=== PATIENT | female | born 1960 | race Caucasian/White ===

== ENCOUNTER 2023-01-12 07:18 | Inpatient (IN) | payer OTHER ==
--- OUTSIDE RECORDS SUMMARY | 2023-01-12 07:21 | XMS REPORT | Continuity of Care Document ---
:1960 Author Organization [facility] t Address [address] [place] [address] [place] [id number] Care Team Providers Name Role Phone Unavailable Unavailable Unavailable Payers Payer Name Policy Type Policy Number Effective Date Expiration Date S ource Problems This patient has no known problems. Allergies, Adverse Reactions, Alerts Allergy Allergy Status Severity Reaction(s) Onset Inactive Treating Comm ents Source Name Type Date Date Clinician Penicill DA Active SV 2018-0 [facility] ins 06-17 [place] [facility] Penicill DA Active SV 2018-0 [facility] 06-09 [place] [facility] Medications This patient has no known medications. Procedures This patient has no known procedures. Results This patient has no known results.
[2023-01-12] MEDS ORDERED: NA CHLORIDE 0.9% 1,000 ML ONE (07:45)
[2023-01-12 07:52] LABS: Absolute Lymphocytes (CBC) 2.4 K/uL (0.7-4.9); Lymphocytes % 28.3 % (15.3-44.8); MCV 85.5 fL (80-100); RBC Red Blood Cell Count 5.14 M/uL (3.86-4.86)
--- NOTE | 2023-01-12 08:00 | RAD REPORT ---
EXAM DESCRIPTION: CT - Ct Stroke Brain Wo Cont - 01/12/2023 7:52 am CLINICAL HISTORY: Right-sided weakness COMPARISON: none TECHNIQUE: Computed axial tomography of the head was obtained. All CT scans are performed using dose optimization technique as appropriate and may include automated exposure control or mA/KV adjustment according to patient size. FINDINGS: An intracranial bleed is not seen . The ventricles are normal in caliber. No extra-axial fluid collection is noted. Vague small low-density left basal ganglia Fluid within the sinuses/ mastoids is not seen. IMPRESSION: Vague low-density left basal ganglia. It is uncertain whether this represents pathology such as an acute infarct or volume averaging. If clinically indicated further evaluation with brain M RI could be obtained Dr Hale of the emergency room was notified at 7:54 a.m. January 14, 2023
[2023-01-12 08:04] LABS: Protime INR 0.88
[2023-01-12 08:12] LABS: Magnesium 2.6 mg/dL (1.6-2.4); Potassium 3.7 mmol/L (3.5-5.1); Troponin High Sensitivity 9.6 pg/mL (<58.9)
[2023-01-12 08:18] LABS: Urine Blood Negative (Negative); Urine Glucose Negative (Negative); Urine Protein Negative (Negative); Urine Specific Gravity 1.015 (1.005-1.030); Urine pH 7.5 (5.0-7.0)
--- NOTE | 2023-01-12 08:21 | RAD REPORT ---
EXAM DESCRIPTION: Emely Angio01/12/2023 7:54 am CLINICAL HISTORY: Slurred speech COMPARISON: None TECHNIQUE: 50 cc Isovue 370 was administered intravenously. 3D MIP reconstruction performed All CT scans are performed using dose optimization technique as appropriate and may include automated exposure control or mA/KV adjustment according to patient size. FINDINGS: The great vessels are unremarkable Common carotid, internal carotid and external carotid arteries do not demonstrate a significant steno sis. The left vertebral artery is dominant. The right vertebral artery is hypoplastic. No dissection seen IMPRESSION: No significant abnormality is displayed NASCET criteria used. Mild 0-49% stenosis Moderate 50-69% stenosis Severe 70-99% stenosis
[2023-01-12] MEDS ORDERED: ASPIRIN 81 MG CHEWABLE TABLET ONE (08:22)
[2023-01-12] MEDS ORDERED: FOLIC ACID 5 MG/ML VIAL ONE (08:23)
--- NOTE | 2023-01-12 08:24 | RAD REPORT ---
EXAM DESCRIPTION: CTHead angio01/12/2023 7:54 am CLINICAL HISTORY: Right-sided weakness/slurred speech COMPARISON: None TECHNIQUE: CT angiogram of the head was obtained. 3D MIPS reconstruction performed. All CT scans are performed using dose optimization technique as appropriate and may include automated exposure control or mA/KV adjustment according to patient size. FINDINGS: The basilar, internal carotid, anterior cerebral, middle cerebral and posterior cerebral a rteries do not demonstrate a significant abnormality An aneurysm is not seen A significant stenosis is not noted. IMPRESSION: No acute abnormality is displayed
--- NOTE | 2023-01-12 08:50 | RAD REPORT ---
EXAM DESCRIPTION: Ratna Single View01/12/2023 8:27 am CLINICAL HISTORY: Right-sided weakness/facial droop COMPARISON: 2021 FINDINGS: The lungs appear clear of acute infiltrate. The heart is normal size IMPRESSION: No acute abnormalities displayed
[2023-01-12] MEDS ORDERED: CLOPIDOGREL 75 MG TABLET ONE (10:32)
[2023-01-12] MEDS ORDERED: HYDROCODONE/APAP 5/325 MG TAB PO PRN (10:54)
[2023-01-12] MEDS ORDERED: ACETAMINOPHEN 325 MG TABLET PO PRN (10:54)
[2023-01-12] MEDS ORDERED: SODIUM CHLORIDE 0.9% 10ML INJ IV PRN (11:01)
[2023-01-12] MEDS ORDERED: ONDANSETRON 4 MG/2 ML VIAL IV PRN (11:07)
--- NOTE | 2023-01-12 11:20 | P.HP ---
Certification for Inpatient Patient admitted to: Inpatient With expected LOS: >2 Midnights Patient will require the following post-hospital care: None Practitioner: I am a practitioner with admitting privileges, knowledge of patient current condition, hospital course, and medical plan of care. Services: Services provided to patient in accordance with Admission requirements found in Title 42 Section 412.3 of the Code of Federal Regulations Patient History Date of Service: 01/12/23 Reason for admission: Right-sided weakness and slurred speech History of Present Illness: Patient is a 62-year-old female with a past medical history significant for GERD, hypertension, hyperlipidemia, nicotine dependence who presents with complaint of right-sided weakness and slurred speech. Patient reported that yesterday she felt weakness in her right side worse on the right upper extremity. Patient reported that weakness was intermittent but became worse and constant this morning. Patient also reported slurred speech onset this morning. Patient feels like her tongue is "heavy". Patient also has chronic cough. Patient reported associated signs and symptoms of difficulty walking\\poor gait. Patient also reported pain in the right upper arm. Patient denies any other signs and symptoms. Symptoms are aggravated or relieved by nothing. Patient decided to present to the hospital for medical evaluation. Allergies Penicillins Allergy (Unknown, Verified 01/29/14 19:26) Anaphylaxis codeine Adverse Reaction (Severe, Verified 01/29/14 19:27) Itching Home Medications: Albuterol Inhaler [Ventolin Inhaler*] 2 puff IH Q6HP PRN #1 hfa.aer.ad 01/30/14 Budesonide/Formoterol Fumarate [Symbicort 160-4.5 Mcg Inhaler] 2 puff IH BID #1 hfa.aer.ad 01/30/14 Estradiol [Estrace] 1 tab PO DAILY 01/30/14 Losartan/Hydrochlorothiazide [Hyzaar 50-12.5 Tablet] 1 tab PO 01/30/14 Pantoprazole [Protonix Tab*] 1 tab PO DAILY 01/30/14 Pitavastatin Calcium [Livalo] 1 tab PO BEDTIME 01/30/14 levoFLOXacin [Levaquin*] 500 mg PO DAILY #7 tab 01/30/14 predniSONE [Deltasone] 20 mg PO BID #9 tab 01/30/14 - Past Medical/Surgical History Diabetic: No -: Hypertension -: Acid Reflux -: Hyperlipidemia -: Chloesectomy -: Hysterectomy -: Tonsillectomy - Social History Smoking Status: Current every day smoker Counseled patient to stop smoking for: less than 10 minutes Smoking therapy provided: Yes Patient receptive to therapy: Yes Alcohol use: Yes CD- Drugs: No Caffeine use: Yes Place of Residence: Home Review of Systems General: Weakness ENT: Unremarkable Respiratory: Unremarkable Cardiovascular: Unremarkable Gastrointestinal: Unremarkable Genitourinary: Unremarkable Musculoskeletal: Arm Pain Integumentary: Unremarkable Neurological: Change in Speech, Other (Poor gait ) Lymphatics: Unremarkable Physical Examination - Physical Exam General: Alert, In no apparent distress, Oriented x3, Cooperative HEENT: Atraumatic, PERRLA, Mucous membr. moist/pink, EOMI, Sclerae nonicteric Neck: Supple, 2+ carotid pulse no bruit, No LAD, Without JVD or thyroid abnormality Respiratory: Clear to auscultation bilaterally, Normal air movement Cardiovascular: No edema, Regular rate/rhythm, Normal S1 S2 Capillary refill: <2 Seconds Gastrointestinal: Normal bowel sounds, No tenderness Musculoskeletal: No clubbing, No swelling, No tenderness Integumentary: No rashes Neurological: Normal tone, Normal affect, Abnormal gait, Abnormal speech, Abnormal strength Lymphatics: No axilla or inguinal lymphadenopathy - Studies Laboratory Data (last 24 hrs) 01/12/23 07:42: PT 9.7, INR 0.88, APTT 27.8 01/12/23 07:42: WBC 8.60, Hgb 14.5, Hct 44.0, Plt Count 323 01/12/23 07:42: Sodium 143, Potassium 3.7, BUN 10, Creatinine 0.92, Glucose 112 H, Magnesium 2.6 H Assessment and Plan - Plan --Suspected CVA. CTA neck\\head unremarkable for any acute findings. CT brain indicates vague low-density left basal ganglia. MRI brain pending. Patient placed on aspirin, folic acid and statin. Continue supportive care. --Abnormality of gait and mobility. MRI brain pending to rule out CVA. PT eval and treat. --Hypertension. We will allow permissive hypertension for SBP less than 200 mmHg. We will continue to monitor blood pressure levels. --GERD. Continue Protonix. --Nicotine dependence. Patient counseled on tobacco cessation. Placed on nicotine patch. --Hyperlipidemia. Continue statin. -- CKD 2. Stable. We will continue to monitor renal function. --DVT prophylaxis with Lovenox subQ. Discharge Plan: Home Plan to discharge in: Greater than 2 days - Advance Directives Does patient have a Living Will: No Does patient have a Durable POA for Healthcare: No - Code Status/Comfort Care Code Status Assessed: Yes Physician Review: Patient Assessed, Agree with Above Assessment and Plan Critical Care: No
[2023-01-12] MEDS ORDERED: LORazepam 2 MG/ML VIAL IV ONE (11:31)
[2023-01-12] MEDS ORDERED: LORazepam 2 MG/ML VIAL ONE (11:52)
[2023-01-12] MEDS ORDERED: TETRACAINE HCL 0.5% 4ML OPTH ONE (12:47)
--- NOTE | 2023-01-12 13:00 | RAD REPORT ---
EXAM DESCRIPTION: MRI - Brain Wo Cont - 01/12/2023 12:40 pm CLINICAL HISTORY: R/ O CVA Right-sided weakness COMPARISON: Noncontrast head CT and CT angiogram of the same day TECHNIQUE: Multiplanar multisequence MRI of the brain performed without IV contrast. FINDINGS: Motion artifact somewhat limits evaluation on some sequences, despite attempts at repeat i maging. Left colonic/posterior limb of internal capsule acute or early subacute infarct on the diffusion weig hted images. Minimal corresponding signal abnormality on T2 and FLAIR images. No evidence of acute intracranial hemorrhage or abnormal extra-axial fluid collections. Ventricular caliber within normal for age. Midline structures are unremarkable. Minimal subcortical and deep white matter T2/FLAIR hyperintensities, nonspecific, but suggestive of c hronic small vessel ischemic changes. No mass effect or midline shift. Major vascular flow voids are preserved. Mastoid air cells and paranasal sinuses are clear. IMPRESSION: Small left thalamus/ posterior limb of internal capsule acute or early subacute infarct. No significant mass effect. No findings to suggest an acute intracranial hemorrhage. The findings were communicated to Volodymyr Murray on 01/12/2023 at 12:55 hours.
[2023-01-12] MEDS: FOLIC ACID 1 MG TABLET PO SCH (13:18)
[2023-01-12] MEDS ORDERED: INFLUENZA VACCINE (for 6+ mo) 0.5 ML DOSE IMVAC ONE (14:00)
[2023-01-12 15:47] LABS: Magnesium 2.5 mg/dL (1.6-2.4); Phosphorus 2.7 mg/dL (2.5-4.9)
[2023-01-12 15:55] LABS: Thyroid Stimulating Hormone 6.31 uIU/mL (0.358-3.740)
[2023-01-12] MEDS ORDERED: ATORVASTATIN 40 MG TAB PO SCH (21:00)
[2023-01-12] MEDS ORDERED: PITAVASTATIN CALCIUM 2 MG PO SCH (21:00)
[2023-01-12] MEDS ORDERED: POTASSIUM CL SA 10 MEQ TAB PO ONE (21:00)
[2023-01-12] MEDS ORDERED: ATORVASTATIN 10 MG TAB PO SCH (21:00)
--- NOTE | 2023-01-12 21:03 | P.PN ---
Date of Service: 01/13/23 Subjective: Feels right arm is weaker but leg is stronger twitching in R extremities Able to converse, however feels physically harder than normal to "get words out" no new symptoms ROS: 10 point ROS as noted above, otherwise negative Physical Exam: Gen: Alert, NAD, AOx3 HEENT: normal conjunctiva, sclera anicteric CV: regular rate & rhythm, no edema Pulm: non-labored respirations on room air, clear bilaterally Abd: soft, non-tender, non-distended Neuro: normal speech, normal affect, Other (RUE 4-/5 strength, RLE 4+/5 strength) RUE/RLE with ataxia, worse in RUE - 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 vitals reviewed Problem List: acute vs subacute left thalamic /PLIC infarct Hypertension GERD Nicotine Dependence Hyperlipidemia CKD 2 CTA neck/head negative for any acute findings CT brain shows vague low-density left basal ganglia MRI brain indicates small left thalamus/ posterior limb of internal capsule acute or early subacute infarct PT - recommends inpatient rehab Speech therapy evaluation aspirin, plavix, statin, folic acid Monitor BP, allow permissive hypertension Continue Protonix Patient on nicotine patch Continue to monitor renal functions echo pending VTE: lovenox Code: Full Dispo: inpatient rehab f
[2023-01-13 04:16] LABS: Absolute Lymphocytes (CBC) 2.8 K/uL (0.7-4.9); Hematocrit 41.9 % (36.0-45.0); Lymphocytes % 27.5 % (15.3-44.8); MPV 7.1 fL (7.6-11.3); RBC Red Blood Cell Count 4.93 M/uL (3.86-4.86)
[2023-01-13 04:33] LABS: Potassium 3.9 mmol/L (3.5-5.1)
[2023-01-13] MEDS: HYDRALAZINE HCL 20 MG/ML VIAL IV PRN ×3 (06:53→20:47)
[2023-01-13] MEDS ORDERED: POTASSIUM CL SA 10 MEQ TAB PO ONE (09:00)
[2023-01-13] MEDS: ASPIRIN 81 MG CHEWABLE TABLET PO SCH (09:43)
[2023-01-13] MEDS: FOLIC ACID 1 MG TABLET PO SCH (09:43)
[2023-01-13] MEDS: PANTOPRAZOLE 40 MG INJ IVP SCH (09:44)
[2023-01-13] MEDS: NICOTINE 21 MG/PAT TD SCH (09:44)
[2023-01-13] MEDS: ENOXAPARIN 40 MG/0.4 ML SQ SCH (09:44)
[2023-01-13 12:16] VITALS: BMI 20.2
--- NOTE | 2023-01-13 12:42 | EKG ---
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
--- NOTE | 2023-01-13 13:47 | ECHO ---
HEIGHT: 5 ft 3 in WEIGHT: 114 lb 0 oz DATE OF STUDY: 01/13/[address]: Jaden Murray MD 2-DIMENSIONAL: YES M.MODE: YES DOPPLER: YES COLOR FLOW: YES TDS: NO PORTABLE: YES DEFINITY: NO BUBBLE STUDY: YES DIAGNOSIS: CEREBRAL VASCULAR ACCIDENT/ SEPTAL DEFECT/ THROMBUS CARDIAC HISTORY: CATHERIZATION: NO SURGERY: NO PROSTHETIC VALVE: NO PACEMAKER: NO MEASUREMENTS (cm) DIASTOLIC (NORMALS) SYSTOLIC (NORMALS) IVSd 0.8 (0.6-1.2) LA Diam 2.8 (1.9-4.0) LVEF 58% LVIDd 4.4 (3.5-5.7) LVIDs 3.1 (2.0-3.5) %FS 30% LVPWd 1.0 (0.6-1.2) Ao Diam 2.8 (2.0-3.7) 2 DIMENSIONAL ASSESSMENT: RIGHT ATRIUM: NORMAL LEFT ATRIUM: NORMAL RIGHT VENTRICLE: NORMAL LEFT VENTRICLE: NORMAL TRICUSPID VALVE: NORMAL MITRAL VALVE: MILD MITRAL REGURGITATION PULMONIC VALVE: NORMAL AORTIC VALVE: NORMAL PERICARDIAL EFFUSION: NONE AORTIC ROOT: NORMAL LEFT VENTRICULAR WALL MOTION: NORMAL. DOPPLER/COLOR FLOW: MILD MITRAL REGURGITATION. COMMENTS: 1. NORMAL LEFT VENTRICULAR EJECTION FRACTION 55-60% 2. NORMAL WALL MOTION 3. GRADE I DIASTOLIC DYSFUNCTION 4. BUBBLE STUDY WAS DONE (POOR WINDOWS). UNABLE TO EVALUATE FOR INTRA CARDIAC SHUNT, TRANSASOPHAGEAL ECHOCARDIOGRAM CAN BE DONE IF INDICATED TECHNOLOGIST: VALENTINO MANN
[2023-01-13] MEDS: CLOPIDOGREL 75 MG TABLET PO SCH (15:40)
[2023-01-13 15:41] LABS: Specific Gravity 1.005 (1.005-1.030); Urine Bilirubin NEGATIVE (Negative); Urine Blood Negative (Negative); Urine Clarity Clear (Clear); Urine Color Colorless (Yellow); Urine Glucose NEGATIVE (Negative); Urine Protein NEGATIVE (Negative); Urine Urobilinogen Normal (Normal)
[2023-01-13] MEDS ORDERED: CETIRIZINE HCL 5 MG TABLET PO PRN (20:18)
[2023-01-13] MEDS: ATORVASTATIN 40 MG TAB PO SCH (20:42)
[2023-01-14] MEDS ORDERED: MELATONIN 5 MG TABLET PO PRN (00:37)
[2023-01-14 05:11] LABS: Potassium 4.1 mmol/L (3.5-5.1)
--- NOTE | 2023-01-14 06:55 | P.PN ---
Date of Service: 01/14/23 Subjective: 2 episodes of BP > 200 systolic yesterday around 3pm and 10-11pm. Received IV hydralazine with good effect. Headache associated with evening elevated BP This morning BP down Feels both R extremities are weaker than yesterday; worse in r arm, difficulty making a fist as well as yesterday denies any new/different neuro deficits ROS: 10 point ROS as noted above, otherwise negative Physical Exam: Gen: Alert, NAD, AOx3 HEENT: normal conjunctiva, sclera anicteric CV: regular rate & rhythm, no edema Pulm: non-labored respirations on room air, clear bilaterally Abd: soft, non-tender, non-distended Neuro: normal speech, normal affect, Other (R lower facial droop, RUE 4/5 strength at wrist/hand, RLE 4/5 strength) RUE/RLE with ataxia, 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 in 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 - 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, 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 Problem List: acute vs subacute left thalamic /PLIC infarct Hypertension GERD Nicotine Dependence Hyperlipidemia CKD 2 Neuro unavailable CTA neck/head negative for any acute findings initial CT brain shows vague low-density left basal ganglia MRI brain indicates small left thalamus/ posterior limb of internal capsule acute or early subacute infarct PT - recommends inpatient rehab scheduled 01/15 Speech therapy evaluation aspirin, plavix, statin, folic acid Monitor BP, allow permissive hypertension low dose hydralazine for BP > 185/105 Continue Protonix Patient on nicotine patch echo shows a grade 1 diastolic dysfunction, otherwise normal repeat CT on 01/14 due to worsening of symptoms, no change in infarct, no hemorrhagic conversion VTE: lovenox Code: Full Dispo: inpatient rehab, likely tomorrow monitor BP today goal 140-170 systolic over the next few days
[2023-01-14] MEDS: ENOXAPARIN 40 MG/0.4 ML SQ SCH (08:03)
[2023-01-14] MEDS: NICOTINE 21 MG/PAT TD SCH (08:04)
[2023-01-14] MEDS: ASPIRIN 81 MG CHEWABLE TABLET PO SCH (08:04)
[2023-01-14] MEDS: FOLIC ACID 1 MG TABLET PO SCH (08:04)
[2023-01-14] MEDS: PANTOPRAZOLE 40 MG INJ IVP SCH (08:04)
[2023-01-14] MEDS: CLOPIDOGREL 75 MG TABLET PO SCH (08:04)
--- NOTE | 2023-01-14 11:48 | RAD REPORT ---
EXAM DESCRIPTION: CT - Head Brain Wo Cont - 01/14/2023 11:22 am CLINICAL HISTORY: stroke, worsening of current symptoms COMPARISON: Head angio dated 01/12/2023; Ct Stroke Brain Wo Cont dated 01/12/2023; Brain Wo Cont dated 01/12/2023 TECHNIQUE: Noncontrast head CT images ad were obtained without IV contrast. Multiplanar reformats we re generated and reviewed. All CT scans are performed using dose optimization technique as appropriate and may include automated exposure control or mA/KV adjustment according to patient size. FINDINGS: No intracranial hemorrhage, mass, or edema. Midline structures are unremarkable. Normal ventricular caliber for age. Focus of hypoattenuation in the left basal ganglia region, corresponds to known small infarct demonst rated on recent brain MRI. Pugh-white matter differentiation is otherwise preserved, without evidence of acute infarct. No abnormal extra-axial fluid collections. Mastoid air cells and visualized portions of the paranasal sinuses are clear. No acute bony findings. IMPRESSION: Known left basal ganglia small subacute infarct. No other acute intracranial process.
[2023-01-14] MEDS: ATORVASTATIN 40 MG TAB PO SCH (20:28)
[2023-01-14 21:33] VITALS: O2SAT 95
[2023-01-15 06:24] LABS: Magnesium 2.6 mg/dL (1.6-2.4); Potassium 3.8 mmol/L (3.5-5.1)
[2023-01-15 08:46] VITALS: BP 139/62; TEMP 97.7
[2023-01-15] MEDS ORDERED: POTASSIUM CL SA 10 MEQ TAB PO ONE (09:00)
[2023-01-15] MEDS: NICOTINE 21 MG/PAT TD SCH (09:07)
[2023-01-15] MEDS: PANTOPRAZOLE 40 MG INJ IVP SCH (09:08)
[2023-01-15] MEDS: FOLIC ACID 1 MG TABLET PO SCH (09:08)
[2023-01-15] MEDS: ENOXAPARIN 40 MG/0.4 ML SQ SCH (09:08)
[2023-01-15] MEDS: CLOPIDOGREL 75 MG TABLET PO SCH (09:08)
[2023-01-15] MEDS: ASPIRIN 81 MG CHEWABLE TABLET PO SCH (09:08)
--- NOTE | 2023-01-15 11:28 | P.DS ---
Admission Date: 01/12/23 Discharge Date: 01/15/23 Disposition: TRANSFER TO INPATIENT REHAB Discharge Condition: FAIR Reason for Admission: Right-sided weakness and slurred speech Brief History of Present Illness: Patient is a 62-year-old female with a past medical history significant for GERD, hypertension, hyperlipidemia, nicotine dependence who presents with complaint of right-sided weakness and slurred speech. Patient reported that yesterday she felt weakness in her right side worse on the right upper extremity. Patient reported that weakness was intermittent but became worse and constant this morning. Patient also reported slurred speech onset this morning. Patient feels like her tongue is "heavy". Patient also has chronic cough. Patient reported associated signs and symptoms of difficulty walking\\poor gait. Patient also reported pain in the right upper arm. Patient denies any other signs and symptoms. Symptoms are aggravated or relieved by nothing. Patient decided to present to the hospital for medical evaluation. Hospital Course: Problem List: acute vs subacute left thalamic /PLIC infarct Hypertension GERD Nicotine Dependence Hyperlipidemia CKD 2 Patient presented with new onset right-sided weakness. She was found to have a small acute vs subacute left thalamic/PLIC infarct. CTA head/neck, echocardiogram negative for any acute findings/etiology for her CVA. Echocardiogram was performed with bubble study, poor windows, no obvious septal defect. Discussed with neurology, given the location of the CVA, very unlikely to be embolic in nature and does not require further investigation by RUSSELL at this time. Patient had labile blood pressure reading early in hospitalization (>24-48hrs after CVA), with a few >190 systolic and associated with headache, managed with low dose IV hydralazine. On the morning of 01/14, she reported feeling her RUE was weaker / less strength in making a fist. Her systolic blood pressure did not drop below 130s with exception of one reading ~4am on 01/14. A repeat CT brain was performed and negative for hemorrhagic conversion or any new findings. She was evaluated with physical therapy and noted to have some improvement in her function and strength, was recommended for inpatient rehab. Her blood pressure improved systolics ranging [id number] without need for medication. Deemed stable for discharge to inpatient rehab. She is to continue on aspirin, Plavix, atorvastatin, folic acid Counselled on smoking cessation and received nicotine patch during hospitalization. 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 Laboratory Data at Discharge: WBC 10.00 K/uL (4.3-10.9) 01/13/23 03:54 Hgb 13.9 g/dL (12.0-15.0) 01/13/23 03:54 Hct 41.9 % (36.0-45.0) 01/13/23 03:54 Plt Count 310 K/uL (152-406) 01/13/23 03:54 PT 9.7 SECONDS (9.5-12.5) 01/12/23 07:42 INR 0.88 01/12/23 07:42 APTT 27.8 SECONDS (24.3-36.9) 01/12/23 07:42 Sodium 137 mmol/L (136-145) 01/15/23 05:58 Potassium 3.8 mmol/L (3.5-5.1) 01/15/23 05:58 BUN 13 mg/dL (7-18) 01/15/23 05:58 Creatinine 0.86 mg/dL (0.55-1.02) 01/15/23 05:58 Glucose 107 mg/dL (74-106) H 01/15/23 05:58 Phosphorus 2.7 mg/dL (2.5-4.9) 01/12/23 15:14 Magnesium 2.6 mg/dL (1.6-2.4) H 01/15/23 05:58 Triglycerides 154 mg/dL (<150) H 01/13/23 03:54 Cholesterol 145 mg/dL (<200) 01/13/23 03:54 HDL Cholesterol 34 mg/dL (40-60) L 01/13/23 03:54 Cholesterol/HDL Ratio 4.26 01/13/23 03:54 Home Medications: Estradiol [Estrace] 1 tab PO DAILY 01/30/14 Losartan/Hydrochlorothiazide [Hyzaar 50-12.5 Tablet] 1 tab PO 01/30/14 Pantoprazole [Protonix Tab*] 1 tab PO DAILY 01/30/14 Pitavastatin Calcium [Livalo] 1 tab PO BEDTIME 01/30/14 levoFLOXacin [Levaquin*] 500 mg PO DAILY #7 tab 01/30/14 predniSONE [Deltasone] 20 mg PO BID #9 tab 01/30/14 Aspirin Chewable [Aspirin Chewable*] 81 mg PO DAILY tab.chew 01/15/23 Atorvastatin Calcium [Lipitor] 40 mg PO BEDTIME tab 01/15/23 Clopidogrel Bisulfate [Plavix*] 75 mg PO DAILY 01/15/23 Physician Discharge Instructions: Patient presented with new onset right-sided weakness. She was found to have a small acute vs subacute left thalamic/PLIC infarct. CTA head/neck, echocardiogram negative for any acute findings/etiology for her CVA. Echocardiogram was performed with bubble study, poor windows, no obvious septal defect. Discussed with neurology, given the location of the CVA, very unlikely to be embolic in nature and does not require further investigation by RUSSELL at this time. Patient had labile blood pressure reading early in hospitalization (>24-48hrs after CVA), with a few >190 systolic and associated with headache, managed with low dose IV hydralazine. On the morning of 01/14, she reported feeling her RUE was weaker / less strength in making a fist. Her systolic blood pressure did not drop below 130s with exception of one reading ~4am on 01/14. A repeat CT brain was performed and negative for hemorrhagic conversion or any new findings. She was evaluated with physical therapy and noted to have some improvement in her function and strength, was recommended for inpatient rehab. Her blood pressure improved systolics ranging [phone] without need for medication. Deemed stable for discharge to inpatient rehab. She is to continue on aspirin, Plavix, atorvastatin, folic acid Counselled on smoking cessation and received nicotine patch during hospitalization. Diet: Regular Activity: Fall precautions Followup: Vitor Herrera MD [Primary Care Provider] - Time spent managing pt's care (in minutes): 45
== END 2023-01-15 09:31 | DRG 65 ==
LOC: ER 07:18 → ERHOLD 10:52 → 2ND 12:45
PROVIDERS: ADMIT Internal Medicine; ATTEND Hospitalist
DX: I63.9 Cerebral infarction, unspecified (principal); G81.91 Hemiplegia, unspecified affecting right dominant side; I12.9 Hypertensive chronic kidney disease with stage 1 through stage 4 chronic kidney disease, or unspecified chronic kidney disease; N18.2 Chronic kidney disease, stage 2 (mild); K21.9 Gastro-esophageal reflux disease without esophagitis; E78.5 Hyperlipidemia, unspecified; F17.200 Nicotine dependence, unspecified, uncomplicated; R47.81 Slurred speech; Z71.6 Tobacco abuse counseling; Z88.1 Allergy status to other antibiotic agents; Z88.5 Allergy status to narcotic agent; Z90.49 Acquired absence of other specified parts of digestive tract; Z79.52 Long term (current) use of systemic steroids; Z79.899 Other long term (current) drug therapy; Z90.710 Acquired absence of both cervix and uterus; Z20.822 Contact with and (suspected) exposure to COVID-19
CPT/HCPCS: 36415; 70450; 70496; 70498; 70551; 71045; 80048; 80061; 81003; 82565; 82947; 83036; 83735; 84100; 84439; 84443; 84484; 85025; 85610; 85730; 92523; 93005; 93306; 96361; 96374; 97110; 97112; 97116; 97161; 97165; 99285; C9113; J0360; J1650; J7030; Q9967; U0003

== ENCOUNTER 2023-01-15 09:30 | Inpatient (IN) | payer OTHER ==
--- OUTSIDE RECORDS SUMMARY | 2023-01-15 09:41 | XMS REPORT | Continuity of Care Document ---
:1960 Author Organization [facility] t Address [address] [place] [id number] Care Team Providers Name Role Phone Unavailable Unavailable Unavailable Payers Payer Name Policy Type Policy Number Effective Date Expiration Date S ource Problems This patient has no known problems. Allergies, Adverse Reactions, Alerts Allergy Allergy Status Severity Reaction(s) Onset Inactive Treating Comm ents Source Name Type Date Date Clinician Penicill DA Active SV 2018-0 [facility] ins 06-17 [place] [facility]: [facility] Penicill DA Active SV 2018-0 [facility] ins 06-09 [place] [facility]: [facility] Medications This patient has no known medications. Procedures This patient has no known procedures. Results This patient has no known results.
[2023-01-15] MEDS ORDERED: DOCUSATE NA/SENNA CONC 1 TAB PO PRN (10:58)
[2023-01-15] MEDS ORDERED: ONDANSETRON 4 MG (ODT) TAB PO PRN (10:59)
[2023-01-15] MEDS ORDERED: CETIRIZINE HCL 5 MG TABLET PO PRN (11:00)
[2023-01-15 11:03] VITALS: BMI 22.8
[2023-01-15 16:41] LABS: Specific Gravity 1.021 (1.005-1.030); Urine Bacteria None Seen /HPF (<20); Urine Bilirubin NEGATIVE (Negative); Urine Blood Negative (Negative); Urine Clarity Clear (Clear); Urine Color Yellow (Yellow); Urine Glucose NEGATIVE (Negative); Urine Mucus 1+ /HPF (None Seen); Urine Protein TRACE (Negative); Urine RBC <5 /HPF (None Seen); Urine Urobilinogen Normal (Normal); Urine pH 5.5 (5.0-7.0)
[2023-01-15] MEDS: ATORVASTATIN 40 MG TAB PO SCH (20:19)
[2023-01-15] MEDS ORDERED: PITAVASTATIN CALCIUM 2 MG PO SCH (21:00)
[2023-01-16] MEDS: PANTOPRAZOLE 40MG TABLET PO SCH (06:45)
[2023-01-16 07:13] LABS: Absolute Lymphocytes (CBC) 2.5 K/uL (0.7-4.9); Hematocrit 44.8 % (36.0-45.0); Lymphocytes % 29.5 % (15.3-44.8); MCV 85.7 fL (80-100); MPV 7.6 fL (7.6-11.3); RBC Red Blood Cell Count 5.23 M/uL (3.86-4.86)
[2023-01-16] MEDS: ENOXAPARIN 40 MG/0.4 ML SQ SCH (07:49)
[2023-01-16] MEDS: NICOTINE 21 MG/PAT TD SCH (07:49)
[2023-01-16] MEDS: LOSARTAN/HCTZ 50-12.5 PO SCH (07:50)
[2023-01-16] MEDS: ASPIRIN 81 MG CHEWABLE TABLET PO SCH (07:50)
[2023-01-16] MEDS: CLOPIDOGREL 75 MG TABLET PO SCH (07:50)
[2023-01-16] MEDS: FOLIC ACID 1 MG TABLET PO SCH (07:50)
[2023-01-16] MEDS ORDERED: ESTRADIOL 0.5 MG PO SCH (08:00)
--- NOTE | 2023-01-16 08:33 | P.HP ---
Certification for Inpatient Patient admitted to: Inpatient With expected LOS: >2 Midnights Patient will require the following post-hospital care: None Practitioner: I am a practitioner with admitting privileges, knowledge of patient current condition, hospital course, and medical plan of care. Services: Services provided to patient in accordance with Admission requirements found in Title 42 Section 412.3 of the Code of Federal Regulations Patient History Allergies Penicillins Allergy (Unknown, Verified 01/29/14 19:26) Anaphylaxis codeine Adverse Reaction (Severe, Verified 01/29/14 19:27) Itching Home Medications: Estradiol [Estrace] 1 tab PO DAILY 01/30/14 Losartan/Hydrochlorothiazide [Hyzaar 50-12.5 Tablet] 1 tab PO DAILY 01/30/14 Pantoprazole [Protonix Tab*] 1 tab PO DAILY 01/30/14 Pitavastatin Calcium [Livalo] 1 tab PO BEDTIME 01/30/14 Aspirin Chewable [Aspirin Chewable*] 81 mg PO DAILY tab.chew 01/15/23 Atorvastatin Calcium [Lipitor] 40 mg PO BEDTIME tab 01/15/23 Clopidogrel Bisulfate [Plavix*] 75 mg PO DAILY 01/15/23 - Past Medical/Surgical History Diabetic: No -: Hypertension -: Acid Reflux -: Hyperlipidemia -: Chloesectomy -: Hysterectomy -: Tonsillectomy - Social History Smoking Status: Current some day smoker Alcohol use: No CD- Drugs: No Caffeine use: Yes Place of Residence: Home Physical Examination - Vital Signs Temperature: 97.4 F Blood Pressure: 141/63 Pulse: 73 Respirations: 18 Pulse Ox (%): 96 - Studies Laboratory Data (last 24 hrs) 01/16/23 06:24: WBC 8.40, Hgb 14.7, Hct 44.8, Plt Count 325 Assessment & Plan - Advance Directives Does patient have a Living Will: No Does patient have a Durable POA for Healthcare: Yes Date of Service: 01/16/23 Rehabilitation And Medical Assessment And Plan: Pt is a -year-old patient admitted to the inpatient rehabilitation unit with _. His rehabilitation impairment category is 20 miscellaneous. His impairment group is code 16. Debility, noncardiac from pulmonary. Active comorbidities are _ His risk of clinical complications include heart_, falls, injuries, bleeding, sepsis, worsening deep vein thrombosis, stroke, infection, and . The patient will have physical and occupational therapy 3 hours a day, 5 of 7 days. He will have the comorbid conditions addressed, which include . He will have diuretics for congestive heart failure and increased fluid in the lung. Diabetes mellitus, managed by insulin and sliding scale as noted. For his cough, Robitussin is used and breathing treatments will be applied as noted including ipratropium and Atrovent. He does have shingles and his medications will continue including gabapentin 100 mg twice daily. For his deep vein thrombosis, he will be on Eliquis 5 mg twice daily along with aspirin 81 mg daily for gout and allopurinol 300 mg daily. For gastroesophageal reflux, he is on Pepcid 20 mg twice daily, Seroquel 150 mg at night for insomnia. He will have Senokot-S 2 at night for constipation. Impact Of Former Comorbid Conditions: He does have significant obesity and is going to require a lot of help as he is debilitated; however, he is motivated and the bariatric walker will be used in addition to large size wheelchairs to accommodate the patient. Note, the patient does have a good understanding of his reason for admission to the inpatient unit and he has a potential to make significant improvement in his physical limitations with physical and occupational therapy. He will have access to Respiratory Service and Nutrition Service as he is significantly malnourished and Wound Care for his shingles and if need be, Psychiatric Service if he does have evidence of depression. His complex medical condition and risk of further medical complications along with his rehabilitation needs make it less safe for him to be admitted to a lower level facility such as correction. Barriers To Discharge: He has morbid obesity and significant pain from shingles in addition to COPD with increased fluid in the lungs requiring diuresis and he is debilitated; however, he is motivated to work hard. Length Of Stay: 2 weeks. Disposition: Expected to be able to go home. Prognosis: Fair. Rehabilitation Goals: 1. To become independent with transfers from bed, to toilet, to shower, and bed mobilization. 2. To be able to independently perform showers. 3. Independently ambulate household distance of 350 feet with a rolling walker. 4. Up and down at least 5 steps independently using hand rails. I acknowledge that I have personally performed a full physical examination on Marck Juarez within 24 hours of his admission to the rehabilitation unit to determine that he is able to tolerate the above course of treatment at an intensive level for the time outlined. A detailed individualized plan of care for him will be completed by hospital day 4, based on his pre-admission screen, admission history and physical, and therapeutic evaluations.
[2023-01-16 09:13] LABS: Albumin 3.7 g/dL (3.4-5.0); Magnesium 2.4 mg/dL (1.6-2.4); Potassium 3.6 mEq/L (3.5-5.1)
[2023-01-16] MEDS: ATORVASTATIN 40 MG TAB PO SCH (19:02)
[2023-01-16] MEDS: MELATONIN 5 MG TABLET PO PRN (19:02)
[2023-01-17] MEDS: PANTOPRAZOLE 40MG TABLET PO SCH (06:57)
[2023-01-17] MEDS: ENOXAPARIN 40 MG/0.4 ML SQ SCH (07:33)
[2023-01-17] MEDS: NICOTINE 21 MG/PAT TD SCH (08:32)
[2023-01-17] MEDS: FOLIC ACID 1 MG TABLET PO SCH (08:33)
[2023-01-17] MEDS: CLOPIDOGREL 75 MG TABLET PO SCH (08:33)
[2023-01-17] MEDS: ASPIRIN 81 MG CHEWABLE TABLET PO SCH (08:33)
[2023-01-17] MEDS: ATORVASTATIN 40 MG TAB PO SCH (20:00)
[2023-01-17] MEDS: ACETAMINOPHEN 325 MG TABLET PO PRN (20:00)
[2023-01-17] MEDS: MELATONIN 5 MG TABLET PO PRN (20:01)
[2023-01-18] MEDS: ACETAMINOPHEN 325 MG TABLET PO PRN ×3 (03:30→19:24)
[2023-01-18] MEDS: ENOXAPARIN 40 MG/0.4 ML SQ SCH (07:14)
[2023-01-18] MEDS: PANTOPRAZOLE 40MG TABLET PO SCH (07:14)
[2023-01-18] MEDS: ASPIRIN 81 MG CHEWABLE TABLET PO SCH (09:41)
[2023-01-18] MEDS: FOLIC ACID 1 MG TABLET PO SCH (09:41)
[2023-01-18] MEDS: LOSARTAN/HCTZ 50-12.5 PO SCH (09:42)
[2023-01-18] MEDS: NICOTINE 21 MG/PAT TD SCH (09:43)
[2023-01-18] MEDS: CLOPIDOGREL 75 MG TABLET PO SCH (09:45)
[2023-01-18] MEDS: ATORVASTATIN 40 MG TAB PO SCH (19:24)
[2023-01-18] MEDS: MELATONIN 5 MG TABLET PO PRN (19:24)
--- NOTE | 2023-01-19 04:50 | P.PN ---
Subjective Date of Service: 01/17/23 Subjective: No new changes, No C/O voiced, Improving Review of Systems 10-point ROS is otherwise unremarkable Physical Examination - Vital Signs Temperature: 97.4 F Blood Pressure: 141/63 Pulse: 73 Respirations: 18 Pulse Ox (%): 96 - Physical Exam General: Alert, In no apparent distress HEENT: Atraumatic, PERRLA, EOMI Neck: Supple, JVD not distended Respiratory: Clear to auscultation bilaterally, Normal air movement Cardiovascular: Regular rate/rhythm, Normal S1 S2 Gastrointestinal: Normal bowel sounds, No tenderness Musculoskeletal: No tenderness Integumentary: No rashes Neurological: Normal speech, Normal tone, Normal affect Lymphatics: No axilla or inguinal lymphadenopathy - Studies Microbiology Data (last 24 hrs): 01/15/23 15:52 Clean Catch Urine [place] Count - Final BETWEEN 10,000 & 100,000 CFU/ML 01/15/23 15:52 Clean Catch Urine - Final MIXED MARY. Medications List Reviewed: Yes Assessment & Plan - Problems (Diagnosis) (1) CVA (cerebral vascular accident) Current Visit: Yes Status: Acute - Advance Directives Does patient have a Living Will: No Does patient have a Durable POA for Healthcare: Yes Date of Service: 01/17/23
[2023-01-19] MEDS: PANTOPRAZOLE 40MG TABLET PO SCH (05:02)
[2023-01-19] MEDS: ENOXAPARIN 40 MG/0.4 ML SQ SCH (07:44)
[2023-01-19] MEDS: CLOPIDOGREL 75 MG TABLET PO SCH (07:45)
[2023-01-19] MEDS: FOLIC ACID 1 MG TABLET PO SCH (07:45)
[2023-01-19] MEDS: ASPIRIN 81 MG CHEWABLE TABLET PO SCH (07:45)
[2023-01-19] MEDS: NICOTINE 21 MG/PAT TD SCH (12:14)
[2023-01-19] MEDS: ACETAMINOPHEN 325 MG TABLET PO PRN (19:58)
[2023-01-19] MEDS: ATORVASTATIN 40 MG TAB PO SCH (19:58)
[2023-01-19] MEDS: MELATONIN 5 MG TABLET PO PRN (19:58)
--- NOTE | 2023-01-19 23:10 | PN ---
Subjective: She is resting in bed. Her sister is at the bedside. She does report right hand kaylie ity coordination issues have fluctuated. She says at night at times it may on its own curl up or str etch out and that she felt perhaps she get a little bit more senior professional services consultant strength but still significant diff iculty making a fist and touching each finger to the thumb on the right hand. She has more strength in the right lower extremity. Otherwise, on subjective, no different complaints there. Review of Systems: She denies significant fevers, chills, myalgias, arthralgias, rash, headache, weight change. No endo rsement of depression, although she is little bit down based on the slow rate of recovery of her stro ke, which is more than a week out. Physical Examination: Vital Signs: Blood pressure 117/59, pulse 70, respiratory rate 16, temperature 97.6, oxygen saturati on 96%. General: Ms. Forrest is resting in bed. HEENT: She again is normocephalic, atraumatic. Sclerae anicteric. Oropharynx is moist. Neck: Supple. Chest: Clear. Heart: Regular. Extremities: Show no significant cyanosis, clubbing, or edema. Neurological: On the right upper extremity proximally around 4, distally 3-4, in terms of hand senior professional services consultant and wrist flexion extension. She does have more strength in the right lower extremity compared to th e left side. She denies any significant loss of feeling on the right greater than left side __ of the right nasolabial fold compared to the left side. Reports intact sensation on the right com pared to left face. Laboratory Studies: Complete blood count with differential is essentially normal. White blood cell count 8.4, hemoglobin 14.7, platelets 325. Chemistries: Sodium 140, potassium 3.6, chloride 112, BU N 12, creatinine 0.86, glucose 134, calcium 9.1, magnesium 2.4, prealbumin 30. Urinalysis unremarkab le. COVID-19 test is negative. X-ray imaging none. Medications: Tylenol 650 every 6 hours, aspirin 81 mg daily, Lipitor 40 mg at bedtime, Zyrtec 10 mg daily, Plavix 75 mg daily, Lovenox 40 mg subcutaneously daily, folic acid 1 mg daily, losartan/hydroc hlorothiazide 50-12 every 48 hours, melatonin 5 mg at bedtime, nicotine patch 21 mg daily, Zofran 4 m g q.6 hours, Protonix 40 mg daily, Senokot-S 2 at bedtime. Current Functional Status: Currently, she did ambulate 250 feet with standby assistance using a roll ing walker. Emphasis was placed on increased step height, so she can have proper heel strike on the right. She did perform dynamic sitting balance activity with balloon volleyball with physical therap ist while unsupported. With occupational therapy, she did upper body extremity exercises with a tabl e top, 3 sets of 7 with towels sides, functional grasp and retrieval for minimal crossing midline through that. She did not have speech therapy as she that. Progress Towards Rehabilitation Goals: She is making good progress, overall, given the limitations o f strength return in the right hand, in terms of her mobilization, transfers, but still has significa nt deficits in terms of dexterity of the right hand because of the stroke. Assessment: Ms. Forrest is a 62-year-old patient with left hemispheric stroke producing right upper mo re than lower extremity paresis with incoordination, poor dexterity. She has tobacco dependency, dys lipidemia, hypertension as stroke risk factors in addition to gastroesophageal reflux. Plan: Aggressive physical and occupational therapy as noted. Continue with medications for comorbid conditions as listed and she will have 3 hours of physical and occupational therapy 5 to 7 days. Comorbidities That Continue To Impact Rehabilitation Progress: She has nicotine dependency, she is o n a patch and that is not a significant limitation at this point. Blood pressure is well managed on significant limitation. She does have admission for depression and antidepressant will be addressed as needed, and this was discussed with the patient and at this point, she wants to hold off on any new medications. LB/MODL Voice ID: [id number] Report ID: [id number]
[2023-01-20] MEDS: ACETAMINOPHEN 325 MG TABLET PO PRN ×2 (01:43→12:35)
[2023-01-20] MEDS: ASPIRIN 81 MG CHEWABLE TABLET PO SCH (09:47)
[2023-01-20] MEDS: FOLIC ACID 1 MG TABLET PO SCH (09:48)
[2023-01-20] MEDS: LOSARTAN/HCTZ 50-12.5 PO SCH (09:48)
[2023-01-20] MEDS: ENOXAPARIN 40 MG/0.4 ML SQ SCH (09:49)
[2023-01-20] MEDS: NICOTINE 21 MG/PAT TD SCH (09:49)
[2023-01-20] MEDS: PANTOPRAZOLE 40MG TABLET PO SCH (09:49)
[2023-01-20] MEDS: CLOPIDOGREL 75 MG TABLET PO SCH (09:49)
[2023-01-20] MEDS: ATORVASTATIN 40 MG TAB PO SCH (20:05)
[2023-01-20] MEDS: APIXABAN 2.5 MG TABLET PO SCH (20:05)
--- NOTE | 2023-01-20 21:05 | PN ---
Date of Progress Note: 01/20/2023 Time Of Service: 12:30 p.m. Subjective: Ms. Forrest is doing well. She is in the gym doing therapy. She has no new complaints. She does report that the right hand dexterity has improved very slightly, but she still has problems trying to uphold her fingers to the thumb on the right hand because of stroke and weakness that resol ariana. She has no other complaints on subjective. Review of Systems: No fevers, chills. No myalgias, arthralgias. Mild swelling of right hand otherwise. Subjectively, the wrist elevation which is related to stroke and siderographist strength as well and all those related to str zenia. Otherwise, no gastrointestinal, genitourinary, dermatological issues. Physical Examination: Vital Signs: Blood pressure 115/52, pulse 68, respiratory rate 16, temperature 97, O2 saturation 97% . General: Ms. Forrest is resting comfortably. She is in no acute distress. HEENT: Face show very subtle right nasolabial crease. Neuro: Sensation intact bilaterally. In terms of her motor exam, distally in the right upper extremity, there is 3/5 strength but some dif ficulty with her fine motor movement and coordinate the activity of the right hand, proximally around 4/5 on the right lower extremity and 4/5 proximally and distally, and the left side 5/5 proximally a nd distally. Laboratory Studies: No new laboratory studies. X-ray/imaging: No new x-ray imaging. Medications: She was actually switched from Lovenox 40 mg subcutaneously daily for DVT prophylaxis t o Eliquis 2.5 mg twice daily as she is very concerned about excessive bruising when receiving Lovenox shots. In addition, she is on Plavix 75 mg daily, aspirin 81 mg daily, and since she is on Eliquis, the Plavix will be held. She is on folic acid 1 mg daily, Hyzaar 50/12.5 every 48 hours, melatonin 5 mg at bedtime, nicotine patch 21 mg daily that can be dropped to 15 mg daily. The patient keeps do ing well with that respect. Senokot 2 at bedtime, Protonix 40 mg daily, and Tylenol 650 mg every 6 h ours as needed. Current Level Of Functioning: Currently, she ambulated 250 feet, 150 feet 3 times, and another 100 f eet with standby assistance using a left hand hemiwalker. She also ambulated 24 times with contact g uard to minimal assistance without the use of an assistive devices. She engaged in mirror therapy wi th cones bilaterally. Performed shoulder flexion to prevent to work on her compensatory strategies a nd balance. Progress Towards Rehabilitation Goals: Ms. Forrest is making fair overall progress toward goals of minor ng able to be more functional with the right upper extremity and she is right handed. Suggested use it to manipulate small objects while on cellphone, to brush her teeth, packing clothes. In addition, to assist her, she is transferring from bed to chair to toilet shower and use equipment and advised some shower to facilitate bathing. In terms of her gait, she is ambulating much better and making go od progress, covering distances as noted with the celia walker making good progress there. Assessment And Plan: Ms. Forrest is a 62-year-old patient with a left hemispheric stroke producing rig ht hand more than leg and face weakness and coordination with poor dexterity and she is making fair p rogress in terms of regaining functioning use of the right hand. She has tobacco dependency, dyslipi demia, hypertension, gastroesophageal reflux. Plan: 1.Continue physical and occupational therapy for 3 hours a day, 5 to 7 days. 2.Aggressive management of her hypertension. She has ongoing nicotine patch for tobacco dependancy. She has statin for dyslipidemia, and she uses Protonix for GE reflux. Comorbidities That Are Continuing To Impact Her Rehabilitation Process: While she is on nicotine dep endancy, she is on 21 mg patch. She is doing well. That may be decreased to a 15 mg patch to decrea se the exposure to nicotine. Otherwise aggressive management of the comorbidities as noted. They ar e not limiting her ability to do well and thrive in therapy. dominant side and so antidepressants may be considered. She does have signs of depression. LB/MODL Voice ID: [id number] Report ID: [id number]
[2023-01-21] MEDS: PANTOPRAZOLE 40MG TABLET PO SCH (06:23)
[2023-01-21 07:26] VITALS: TEMP 96.9
[2023-01-21] MEDS: APIXABAN 2.5 MG TABLET PO SCH (07:27)
[2023-01-21] MEDS: ASPIRIN 81 MG CHEWABLE TABLET PO SCH (07:27)
[2023-01-21] MEDS: FOLIC ACID 1 MG TABLET PO SCH (07:27)
[2023-01-21] MEDS: NICOTINE 21 MG/PAT TD SCH (07:57)
[2023-01-21 08:49] VITALS: BP 120/68
== END 2023-01-21 13:55 | disposition home health service (06) | DRG 554 ==
LOC: 5TH 09:30
PROVIDERS: ADMIT Hospitalist; ATTEND Psychiatry & Neurology Neurology with Special Qualifications in Child Neurology
DX: M10.9 Gout, unspecified (principal); E46 Unspecified protein-calorie malnutrition; K21.9 Gastro-esophageal reflux disease without esophagitis; G47.00 Insomnia, unspecified; E66.9 Obesity, unspecified; E66.01 Morbid (severe) obesity due to excess calories; B02.9 Zoster without complications; J44.9 Chronic obstructive pulmonary disease, unspecified; F17.200 Nicotine dependence, unspecified, uncomplicated; Z20.822 Contact with and (suspected) exposure to COVID-19; Z68.22 Body mass index [BMI] 22.0-22.9, adult
CPT/HCPCS: 36415; 80048; 81001; 82040; 83735; 84134; 85025; 87086; 87088; 92523; 97110; 97112; 97116; 97124; 97161; 97165; 97530; J1650; U0003

== ENCOUNTER 2023-04-06 10:15 | Emergency (ER) | payer OTHER ==
--- OUTSIDE RECORDS SUMMARY | 2023-04-06 10:57 | XMS REPORT | Continuity of Care Document ---
:1960 Author Organization [facility] t Address [address] [place] [address] [address] [place] [address] Care Team Providers Name Role Phone Unavailable Unavailable Unavailable Payers Payer Name Policy Type Policy Number Effective Date Expiration Date S ource Problems This patient has no known problems. Allergies, Adverse Reactions, Alerts Allergy Allergy Status Severity Reaction(s) Onset Inactive Treating Comm ents Source Name Type Date Date Clinician Penicill DA Active 2018-0 [facility] ins 06-17 [place] 00:00: [facility] Penicill DA Active SV 0 [facility] ins 06-09 [place] 00:00: [facility] Medications This patient has no known medications. Procedures This patient has no known procedures. Results This patient has no known results. Notes Date/Time Note Provider Source 2019-06-17 14:45:00-00:00 [id number] [facility] [place] [id number] PATIENT NAME: RONNELL ART ADMIT DATE: 06/17/19 ACCOUNT NO: [id number] ROOM NO: AGE: 59 REPORT TYPE: OPERATIVE REPORT SEX: F ADMITTING PHYSICIAN: ATTENDING PHYSICIAN:Thai Rowland MD OPERATION DATE: 06/17/2019 OUTPATIENT [facility] SURGERY PREOPERATIVE DIAGNOSES: 1. Right middle finger soft tissue mass ganglion tendon sheath. 2. Right first dorsal compartment tendinitis. 3. Left first dorsal compartment tendinitis. POSTOPERATIVE DIAGNOSES: 1. Right middle finger soft tissue mass ganglion tendon sheath. 2. Right first dorsal compartment tendinitis. 3. Left first dorsal compartment tendinitis. PROCEDURES PERFORMED: 1. Right middle finger soft tissue ganglion tend on sheath mass excision and biopsy. 2. Right first dorsal compartment release. 3. Left first dorsal compartment steroid injecti on. SURGEON: Thai Rowland MD PLANNING ASSISTANT: ANESTHESIA: IV Xylocaine block, [place] [facility]. INDICATION: A 59-year-old white female w ith bilateral first dorsal compartment compression syndrome, right greater than left for right first dorsal compartment release, left cortisone injection. The patient a lso has a mass on the ulnar aspect of the right middle finger proximal phala nx for surgical excisional biopsy. PROCEDURE IN DETAIL: After satisfactory IV Xyloc greg block anesthesia, the right hand and arm were prepped and draped in [facility] orthopedic fashion. All dissection was performed und er 2-1/2 power magnification. Arm was exsanguinated with a Jd bandage and tourniquet inflated to 250 mmHg prior to regional block anesthetic. An ulnar midlateral incision was made at the pro ximal phalanx of the right middle finger and dissected down through skin an d subcutaneous tissue over a soft tissue mass. Neurovascular bundles were pro tected. Mass was a ganglion cyst coming from the tendon sheath. Tendon sheat h was opened up and the mass PATIENT NAME: RONNELL ART ACCOUNT #: [id number] and portion of the rent in t he tendon sheath was excised and sent for pathologic interpretation. Ganglion cyst appeared to be the diagnosis with ganglionic fluid within the cyst. Flexor tendons were uninvolved. Skin and subcuta neous tissue closed with 5-0 nylon interrupted suture. Oblique incision was made over the first dorsal compartment of the right wrist in the line of skin creases, dissected down thro [facility] skin and subcutaneous tissue. Neurovascular bundles were protected. Bl eeding controlled with Bovie cautery. Thickened first dorsal compartment was present and dorsal ulnar release was performed. Multiple slips of the abd uctor pollicis longus and a single separate slip and a s eparate compartment of the extensor pollicis brevis. All were released. Synovectomy was performed. T here was good excursion without a tendon rupture or injury. A portion of the thickened ligament was removed to prevent mass formation. Tendons were stable. Wounds were irrigated with saline and bacitracin. A 0.25% Marcaine, epinephrine, and Kenalog solution placed along the extensor te ndinosis and skin closed with subcuticular Monocryl and nylon, and Steri-Strips. Bulky compression d ressing and neutral wrist splint was applied. Tourniquet was released afte r 30 minutes with good capillary refill of the fingertips. The left first dorsal compar tment extensor tenosynovitis was injected with 0.25% Marcaine, epinephrine, and Kenalog solution 5 mL . The patient tolerated all procedures well and returned to recovery room in satisfactory condition. Dictated By: Thai Rowland MD WT: OP:YADELA/WINSOME/VANNESSA Conf#: [id number]/DID#: [id number] Authenticated by Thai Rowland MD On 06/20/20 08:14:06 AM at 0814 PATIENT NAME: RONNELL ART ACCOUNT #: [id number]
--- NOTE | 2023-04-06 11:03 | RAD REPORT ---
EXAM DESCRIPTION: CT - Head Brain Wo Cont - 04/06/2023 10:52 am CLINICAL HISTORY: Dizziness COMPARISON: January 14, 2023 TECHNIQUE: Computed axial tomography of the head was obtained. IV contrast was not requested. All CT scans are performed using dose optimization technique as appropriate and may include automated exposure control or mA/KV adjustment according to patient size. FINDINGS: An intracranial bleed is not seen The ventricles are normal in caliber No extra-axial fluid collection is noted. Small later subacute left internal capsule infarction. Fluid within the sinuses/ mastoids is not seen. IMPRESSION: Small subacute left subacute internal capsule infarction No acute intracranial abnormality seen If patient's symptoms persist MRI of the brain would be recommended
[2023-04-06] MEDS ORDERED: NA CHLORIDE 0.9% 1,000 ML ONE ×2 (11:20→11:44)
[2023-04-06 11:33] LABS: Absolute Lymphocytes (CBC) 1.7 K/uL (0.7-4.9); Hematocrit 41.6 % (36.0-45.0); Lymphocytes % 19.7 % (15.3-44.8); MCV 86.5 fL (80-100)
[2023-04-06 11:51] LABS: Albumin 4.1 g/dL (3.4-5.0); Bilirubin Total 0.9 mg/dL (0.2-1.0); Protein, Total 7.4 g/dL (6.4-8.2)
[2023-04-06 11:53] LABS: Potassium 4.5 mEq/L (3.5-5.1)
[2023-04-06 12:56] LABS: Specific Gravity < 1.005 (1.005-1.030); Urine Bacteria <20 /HPF (<20); Urine Bilirubin NEGATIVE (Negative); Urine Blood Negative (Negative); Urine Clarity Clear (Clear); Urine Color Colorless (Yellow); Urine Glucose NEGATIVE (Negative); Urine Protein NEGATIVE (Negative); Urine RBC <5 /HPF (None Seen); Urine Urobilinogen Normal (Normal)
--- NOTE | 2023-04-06 13:00 | ER ---
Nurse's Notes [facility] Name: Enedina Forrest Age: 62 yrs Sex: Female : 1960 Arrival Date: 04/06/2023 Time: 10:15 Bed 15 Private MD: Diagnosis: Dehydration Presentation: 04/06 10:30 Chief complaint: Patient states: she started feeling dizzy and lightheaded yesterday, ap3 more so when she turns her head or stands up. patient was nervous about her symptoms due to her hx of stroke. Coronavirus screen: At this time, the client does not indicate any symptoms associated with coronavirus-19. Ebola Screen: No symptoms or risks identified at this time. Initial Sepsis Screen: Does the patient meet any 2 criteria? No. Patient's initial sepsis screen is negative. Does the patient have a suspected source of infection? No. Patient's initial sepsis screen is negative. Risk Assessment: Do you want to hurt yourself or someone else? Patient reports no desire to harm self or others. Onset of symptoms was April 05, 2023. 10:30 Method Of Arrival: EMS: [facility] ap3 10:30 Acuity: JACINTO 3 ap3 Triage Assessment: 10:39 General: Appears in no apparent distress. Behavior is calm, cooperative. Pain: Denies ap3 pain. Neuro: Level of Consciousness is awake, alert, obeys commands, Speech is normal, Reports dizziness, lightheaded ness. Cardiovascular: Patient's skin is warm and dry. Respiratory: Airway is patent Respiratory effort is even, unlabored, Respiratory pattern is regular, symmetrical. Historical: - Allergies: 10:32 PENICILLINS; ap3 - Home Meds: 10:32 clopidogrel oral [Active]; losartan-hydrochlorothiazide oral [Active]; atorvastatin ap3 oral [Active]; pantoprazole oral [Active]; levothyroxine oral [Active]; - PMHx: 10:32 High Cholesterol; Hypertension; stroke; ap3 - Immunization history:: Client reports receiving the 2nd dose of the Covid vaccine. - Social history:: Smoking status: Patient reports the use of cigarette tobacco products, denies chronic smoking, but will smoke occasionally. Screenin:40 Abuse screen: Denies threats or abuse. Nutritional screening: No deficits noted. ap3 Tuberculosis screening: No symptoms or risk factors identified. Assessment: 11:43 Reassessment: Patient and/or family updated on plan of care and expected duration. Pain ap3 level reassessed. Patient is alert, oriented x 3, equal unlabored respirations, skin warm/dry/pink. Vital Signs: 10:30 BP 138 / 70; Pulse 60; Resp 17; Temp 97.7; Pulse Ox 100% ; Weight 53.07 kg; ap3 12:00 BP 121 / 54; Pulse 74; Pulse Ox 99% on R/A; ap3 ED Course: 10:30 Patient arrived in ED. ap3 10:31 [facility]C [facility] snw 10:31 Rip Ibarra MD is Attending Physician. snw 10:32 Triage completed. ap3 10:40 Nurse Practitioner and/or Physician Construction Consultant to see patient. ap3 10:40 Arm band placed on right wrist. ap3 10:40 Patient has correct armband on for positive identification. Bed in low position. Call ap3 light in reach. Side rails up X2. Adult w/ patient. Pulse ox on. NIBP on. Door closed. Noise minimized. 10:53 CT Head Brain wo Cont In Process Unspecified. EDMS 11:02 Yadi Garcia, RN is Primary Nurse. ap3 11:17 Inserted saline lock: 20 gauge in right wrist, using aseptic technique. Blood collected.ap3 13:01 No provider procedures requiring assistance completed. mb9 13:18 IV discontinued, intact, bleeding controlled, No redness/swelling at site. Pressure mb9 dressing applied. Administered Medications: 11:40 Drug: NS 0.9% IV 1000 ml Route: IV; Rate: 75 ml/hr; Site: right wrist; ap3 Medication: 10:40 VIS not applicable for this client. ap3 Outcome: 12:59 Discharge ordered by . snw 13:18 Discharged to home ambulatory. mb9 13:18 Condition: stable 13:18 Discharge instructions given to patient, Instructed on discharge instructions, follow up and referral plans. Demonstrated understanding of instructions, follow-up care. 13:18 Patient left the ED. mb9 Signatures: Dispatcher [employer] EDMS Ramandeep Mandel FNP-C [employer]ER-Csnw Yadi Garcia RN CLAUDIA ap3 Breneman, Kiesha, RN RN mb9
--- NOTE | 2023-04-06 13:00 | EDPHYS ---
Physician Documentation [facility] Name: Enedina Forrest Age: 62 yrs Sex: Female : 1960 Arrival Date: 04/06/2023 Time: 10:15 Bed 15 Private MD: ED Physician Rip Ibarra HPI: 04/06 13:03 This 62 yrs old Female presents to ER via EMS with complaints of Dizziness. snw 13:03 The patient has experienced near-syncope, felt generally weak. Onset: The snw symptoms/episode began/occurred acutely, 2 day(s) ago, and became worse this morning. Duration: This was a single episode. Context: occurred at home. Associated signs and symptoms: Pertinent positives: stiffness to right lower ext. CVA left sided 12 weeks ago, pt has started multiple new medications and is unsure if the s/s are related. Historical: - Allergies: 10:32 PENICILLINS; ap3 - Home Meds: 10:32 clopidogrel oral [Active]; losartan-hydrochlorothiazide oral [Active]; atorvastatin ap3 oral [Active]; pantoprazole oral [Active]; levothyroxine oral [Active]; - PMHx: 10:32 High Cholesterol; Hypertension; stroke; ap3 - Immunization history:: Client reports receiving the 2nd dose of the Covid vaccine. - Social history:: Smoking status: Patient reports the use of cigarette tobacco products, denies chronic smoking, but will smoke occasionally. ROS: 10:46 Eyes: Negative for injury, pain, redness, and discharge, ENT: Negative for injury, snw pain, and discharge, Neck: Negative for injury, pain, and swelling, Cardiovascular: Negative for chest pain, palpitations, and edema, Respiratory: Negative for shortness of breath, cough, wheezing, and pleuritic chest pain, Abdomen/GI: Negative for abdominal pain, nausea, vomiting, diarrhea, and constipation, Back: Negative for injury and pain, : Negative for injury, bleeding, discharge, and swelling, MS/Extremity: Negative for injury and deformity, Skin: Negative for injury, rash, and discoloration, Psych: Negative for depression, anxiety, suicide ideation, homicidal ideation, and hallucinations. 10:46 Constitutional: Positive for body aches, malaise. 10:46 Neuro: Positive for near syncope, stiffness. Exam: 10:46 Constitutional: This is a well developed, well nourished patient who is awake, alert, snw and in no acute distress. Head/Face: Normocephalic, atraumatic. Eyes: Pupils equal round and reactive to light, extra-ocular motions intact. Lids and lashes normal. Conjunctiva and sclera are non-icteric and not injected. Cornea within normal limits. Periorbital areas with no swelling, redness, or edema. ENT: Nares patent. No nasal discharge, no septal abnormalities noted. Tympanic membranes are normal and external auditory canals are clear. Oropharynx with no redness, swelling, or masses, exudates, or evidence of obstruction, uvula midline. Mucous membranes moist. Neck: Trachea midline, no thyromegaly or masses palpated, and no cervical lymphadenopathy. Supple, full range of motion without nuchal rigidity, or vertebral point tenderness. No Meningismus. Chest/axilla: Normal chest wall appearance and motion. Nontender with no deformity. No lesions are appreciated. Cardiovascular: Regular rate and rhythm with a normal S1 and S2. No gallops, murmurs, or rubs. Normal PMI, no JVD. No pulse deficits. Respiratory: Lungs have equal breath sounds bilaterally, clear to auscultation and percussion. No rales, rhonchi or wheezes noted. No increased work of breathing, no retractions or nasal flaring. Abdomen/GI: Soft, non-tender, with normal bowel sounds. No distension or tympany. No guarding or rebound. No evidence of tenderness throughout. Back: No spinal tenderness. No costovertebral tenderness. Full range of motion. Skin: Warm, dry with normal turgor. Normal color with no rashes, no lesions, and no evidence of cellulitis. MS/ Extremity: Pulses equal, no cyanosis. Neurovascular intact. Full, normal range of motion. Neuro: Awake and alert, GCS 15, oriented to person, place, time, and situation. Cranial nerves II-XII grossly intact. Motor strength 5/5 in all extremities. Sensory grossly intact. Cerebellar exam normal. Normal gait. Psych: Awake, alert, with orientation to person, place and time. Behavior, mood, and affect are within normal limits. Vital Signs: 10:30 BP 138 / 70; Pulse 60; Resp 17; Temp 97.7; Pulse Ox 100% ; Weight 53.07 kg; ap3 12:00 BP 121 / 54; Pulse 74; Pulse Ox 99% on R/A; ap3 MDM: 10:31 Patient medically screened. snw 10:47 Differential Diagnosis: cardiac arrhythmia, cerebrovascular accident, seizure, snw vasovagal episode, dehydration. Data reviewed: vital signs, nurses notes. Counseling: I had a detailed discussion with the patient and/or guardian regarding: the historical points, exam findings, and any diagnostic results supporting the discharge/admit diagnosis, the presence of at least one elevated blood pressure reading (>120/80) during this emergency department visit. 04/06 10:42 Order name: CBC with Diff; Complete Time: 11:39 snw 04/06 10:42 Order name: CMP; Complete Time: 11:56 snw 04/06 10:42 Order name: Urine W/Microscopic (UAM); Complete Time: 12:59 snw 04/06 10:42 Order name: CT Head Brain wo Cont; Complete Time: 11:18 snw 04/06 11:39 Order name: Misc. Order: please increase IVF to bolus rate; Complete Time: 11:40 snw Administered Medications: 11:40 Drug: NS 0.9% IV 1000 ml Route: IV; Rate: 75 ml/hr; Site: right wrist; ap3 Disposition Summary: 04/06/23 12:59 Discharge Ordered Location: Home snw Condition: Stable snw Diagnosis - Dehydration snw Followup: snw - With: Emergency Department - When: As needed - Reason: Worsening of condition Followup: snw - With: Private Physician - When: 2 - 3 days - Reason: Recheck today's complaints, Continuance of care, Re-evaluation by your physician Discharge Instructions: - Discharge Summary Sheet snw - Dehydration, Adult snw - Near-Syncope snw - Rehydration, Adult snw Forms: - Medication Reconciliation Form snw - Thank You Letter snw - Antibiotic Education snw - Prescription Opioid Use snw Signatures: Dispatcher [employer] Ramandeep Esteban FNP-C FNP-Yadi Tristan RN RN ap3
[2023-04-06 13:23] VITALS: TEMP 97.7
[2023-04-06 13:24] VITALS: BP 121/54; O2SAT 99
== END 2023-04-06 13:18 | disposition home or self-care (01) ==
LOC: ER 10:15 → SUPCPDRO 10:15 → ER 13:18
DX: E86.0 Dehydration (principal); I10 Essential (primary) hypertension; E78.00 Pure hypercholesterolemia, unspecified; F17.210 Nicotine dependence, cigarettes, uncomplicated; Z88.0 Allergy status to penicillin
CPT/HCPCS: 85025; 81001; 36415; 80053; 70450; 99284; J7030 ×2